=== PATIENT | male | born 1955 | race Caucasian/White ===

== ENCOUNTER 2018-06-03 02:53 | Emergency (ER) | payer OTHER, BC ==
[~2018-06-03] VITALS: Ht 188 cm; Wt 81.6 kg
[2018-06-03 02:55] VITALS: BP_SYST 145
[2018-06-03] MEDS ORDERED: IBUPROFEN 600 MG TABLET PO ONE (03:15)
[2018-06-03 03:43] LABS: HEMATOCRIT 37.4 % (36-54); HEMOGLOBIN 12.7 g/dL (14.0-18.0); MEAN CORPUSCULAR HEMOGLOBIN 31 pg (27-31); MEAN CORPUSCULAR HGB CONC 34 % (32-36); MEAN CORPUSCULAR VOLUME 92 fL (79.0-98.0); PLATELET COUNT (AUTO) 258 K/uL (130-430); RED BLOOD CELL COUNT(AUTO) 4.08 MIL/uL (4.2-6.2); RED CELL DISTRIBUTION WIDTH 12.3 % (9.0-15.0); WHITE BLOOD COUNT (AUTO) 9.9 K/uL (4.8-10.8)
[2018-06-03 03:44] LABS: ANION GAP 11 (5-15); CHLORIDE 97 mmol/L (98-107); CREATININE 1.22 mg/dL (0.55-1.30); GLUCOSE 130 mg/dL (70-99); POTASSIUM 3.5 mmol/L (3.5-5.1); SODIUM SERUM 133 mmol/L (136-145); UREA NITROGEN, BLOOD 14 mg/dL (8-21)
[2018-06-03 03:48] LABS: GFR AFRICAN AMERICAN 77 mL/min (>90)
[2018-06-03 03:50] LABS: ALANINE AMINOTRANSFERASE 218 U/L (12-78); ALBUMIN 2.8 g/dL (3.4-4.8); ASPARTATE AMINOTRANSFERASE 143 U/L (10-37); TOTAL BILIRUBIN 1.3 mg/dL (0.0-1.0)
[2018-06-03 03:54] LABS: ALCOHOL, BLOOD < 3 mg/dL (<10)
[2018-06-03 04:29] LABS: BILIRUBIN,URINE NEGATIVE (NEGATIVE); BLOOD, URINE 1+ (NEGATIVE); CLARITY/URINE CLEAR (CLEAR); COLOR,URINE YELLOW (YELLOW); GLUCOSE,URINE NEGATIVE (NEGATIVE); KETONES,URINE NEGATIVE (NEGATIVE); LEUKOCYTE ESTERASE ,URINE NEGATIVE (NEGATIVE); NITRITE, URINE NEGATIVE (NEGATIVE); PROTEIN URINE TRACE (NEGATIVE)
[2018-06-03 04:41] LABS: BACTERIA,URINE FEW /HPF (None Seen); WBC,URINE 0-3 /HPF (0-3)
[2018-06-03 04:42] LABS: BASOPHILS % (MANUAL) 0 % (0-2); EOSINOPHILS % (MANUAL) 0 % (0-7); LYMPHOCYTES % (MANUAL) 7 % (20-46); MONOCYTES % (MANUAL) 14 % (0-11)
[2018-06-03 04:43] LABS: BARBITURATE, URINE NEGATIVE (NEG <=200); BENZODIAZEPINE, URINE NEGATIVE (NEG <=150); CANNABINOID, URINE NEGATIVE (NEG <=50); COCAINE, URINE NEGATIVE (NEG <=150); METHAMPHETAMINES SCREEN,URINE NEGATIVE (NEG <=500); OPIATE, URINE NEGATIVE (NEG <=100); PHENCYCLIDINE SCREEN,URINE NEGATIVE (NEG <=25); UR TRICYCLIC ANTIDEPRESSANTS POSITIVE (NEG <=300); URINE AMPHETAMINE NEGATIVE (NEG <=500); URINE METHADONE NEGATIVE (NEG <=200); URINE OXYCODONE SCREEN NEGATIVE (NEG <=100); URINE PROPOXYPHENE SCREEN NEGATIVE (NEG <=300)
[2018-06-03 05:18] VITALS: BP_SYST 148
== END 2018-06-03 05:16 | disposition home or self-care (01) ==
LOC: SED 02:53
DX: M79.644 Pain in right finger(s) (principal); D64.9 Anemia, unspecified; R74.0 Nonspecific elevation of levels of transaminase and lactic acid dehydrogenase [LDH]; M79.7 Fibromyalgia; V47.5XXA Car driver injured in collision with fixed or stationary object in traffic accident, initial encounter; Y93.89 Activity, other specified; Y92.410 Unspecified street and highway as the place of occurrence of the external cause; Y99.8 Other external cause status
CPT/HCPCS: 36415; 70450; 71045; 73130; 80053; 80307; 81000; 84484; 85007; 85027; 93005; 99284; G0482